=== PATIENT | male | born 1940 | race Caucasian/White ===

== ENCOUNTER 2016-09-01 12:09 | Emergency (ER) | payer MEDICARE, BC ==
--- OUTSIDE RECORDS SUMMARY | 2016-09-01 12:20 | XMS REPORT | Continuity of Care Document ---
:1940 Author Organization [facility] [place] [address] Care Team Providers Name Role Phone Yo Martins Victoriano Primary Care Provider [phone] Source Comments This disclosure is being made pursuant to the Empowered Careers program and maynot contain all information available regarding this patient.[facility] Active Allergies and Adverse Reactions No Known Allergies Current Medications Be aware that medications may not be up to date as of this document. Alwaysverify current medications with the patient. Prescription Sig. Disp. Refills Start Date End Date Status pantoprazole Take 40 mg by Active (PROTONIX) 40 MG mouth daily. tablet albuterol (PROVENTIL Inhale 2 Active HFA;VENTOLIN HFA) puffs into 108 (90 BASE) the lungs MCG/ACT inhaler every 6 (six) hours as needed for Wheezing. diltiazem (CARDIZEM Take 180 mg Active CD) 180 MG 24 hr by mouth capsule daily. nitroGLYCERIN Place 0.4 mg Active (NITROSTAT) 0.4 MG under the SL tablet tongue every 5 (five) minutes as needed for Chest pain. cephALEXin (KEFLEX) Take 500 mg Active 500 MG capsule by mouth 3 (three) times daily. PARoxetine (PAXIL) Take 10 mg by Active 10 MG tablet mouth daily. nortriptyline Take 25 mg by Active (PAMELOR) 25 MG mouth capsule nightly. memantine (NAMENDA) 1/2 tablet at 60 tablet 6 08/19/2016 Active 10 MG tablet at bedtime for 1 week then 1/2 tablet twice daily for 1 week then 1/2 tablet in AM and 1 tablet in PM then 1 tablet twice daily thereafter. clopidogrel (PLAVIX) Take 75 mg by 08/19/2016 Discontinued 75 MG tablet mouth daily. memantine (NAMENDA Follow 49 tablet 0 08/19/2016 08/19/2016 Discontinued TITRATION PACK) package tablet pack directions. 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 Management - titration kit not covered, changed to plain namenda 07/02/2016 Data Import Social History Tobacco Use Types Packs/Day Years Used Date Former Smoker Cigarettes 2 50 Smokeless Tobacco: Former User Quit: 09/18/2005 Comments:quit 8 years ago Alcohol Use Drinks/Week oz/Week Comments No Past heavy use Last Filed Vital Signs Vital Sign Reading Time Taken Blood Pressure 116/80 08/19/2016 10:13 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 Pulse 70 08/19/2016 10:13 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 Temperature 37.2 C (98.9 F) 01/07/2016 4:33 PM CDT Respiratory Rate 18 01/07/2016 4:33 PM CDT Height 1.651 m (5' 5") 08/19/2016 10:13 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 Weight 67.132 kg (148 lb) 08/19/2016 10:13 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 Body Mass Index 24.63 08/19/2016 10:13 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 Oxygen Saturation 96% 01/07/2016 4:33 PM CDT Plan of Care Date Type Specialty Providers Description 10/13/2016 Appointment Neurology Henok Sims MD [address] [place] [address] [address] [place] [address] [phone] (Fax) 12/30/2016 Appointment Radiology Carlos Arreola MD [address] [place] [phone] (Fax) 01/06/2017 Appointment Oncology Carlos Arreola MD [address] [place] [phone] (Fax) Health Maintenance Due Date Last Done Comments Tetanus/Pertussis (1 - Tdap) 1961 Colonoscopy 1992 Well Adult Visit 1992 Zoster Vaccine 60+ 2002 AAA Screening (Medicare Covered) 2007 Pneumococcal Low/Medium Risk 65+ (1 of 2 - PCV13) 2007 Influenza Immunization (#1) 2016 Results from Last 3 Months Not on file
--- OUTSIDE RECORDS SUMMARY | 2016-09-01 12:20 | XMS REPORT | Continuity of Care Document ---
:1940 Author Organization [facility] ([facility]) Address [address] [place] [address] Phone [phone] Care Team Providers Name Role Phone Yo Martins Primary Care Provider [phone] Source Comments This disclosure is being made pursuant to the Care Everywhere program, applicable federal and state laws, and may not contain all informaitonavailable regarding this patient.[facility] ([facility]) Active Allergies and Adverse Reactions No Known Allergies Current Medications Prescription Sig. Disp. Refills Start Date End Date Status nitroglycerin 0.4 place 1 Tab under 1 Bottle 1 08/17/2011 Active mg SL tablet the tongue every 5 minutes as needed. Indications: Angina albuterol (PROAIR Use 1-2 Puffs by 8.5 g 11 09/26/2014 Active HFA) 90 inhalation every mcg/Actuation 6 hours as inhaler needed. Indications: BRONCHOSPASM PREVENTION calcium carbonate Take 600 mg by Active PO mouth daily clopidogrel 75 mg Take 1 tablet (75 60 tablet 11 03/26/2015 Active tablet mg total) by mouth daily meclizine 25 mg Take 1 tablet (25 30 tablet 3 09/10/2015 Active tablet mg total) by mouth 3 times daily as needed. loperamide 2 mg Take 1 tablet (2 20 tablet 2 09/10/2015 Active tablet mg total) by mouth 4 times daily as needed. pantoprazole 40 mg Take 1 tablet (40 90 tablet 3 2016 Active EC tablet mg total) by mouth daily. diltiazem 180 mg Take 1 capsule 90 capsule 3 2016 Active ER capsule (180 mg total) by mouth daily. PARoxetine 20 mg Take 0.5 tablets 30 tablet 11 06/19/2016 Active tablet (10 mg total) by mouth daily. HYDROcodone-acetam Take 1 tablet by 15 tablet 0 07/15/2016 Active inophen 5-325 mg mouth every 6 per tablet hours as needed for Pain. docusate 100 mg Take 1 capsule 30 capsule 0 07/15/2016 Active capsule (100 mg total) by mouth 2 times daily as needed for Constipation (and while taking narcotic pain meds (hydrocodone)). cephalexin 500 mg Take 1 capsule 30 capsule 0 08/14/2016 Active capsule (500 mg total) by mouth 3 times daily. cephalexin 500 mg Take 1 capsule 30 capsule 0 07/28/2016 08/14/19 Discontinued capsule (500 mg total) by 17 mouth 3 times daily. Active Problems Problem Noted Date Sinus headache 05/08/2015 Acute maxillary sinusitis 05/08/2015 Acute frontal sinusitis 05/08/2015 Hearing loss 09/19/2014 Special screening for malignant neoplasms, colon 07/28/2013 History of nonmelanoma skin cancer 07/22/2013 Other vitamin B12 deficiency anemia 07/27/2012 Chest pain, unspecified 06/14/2012 Impaired hearing 06/14/2012 Chest wall pain 06/14/2012 Gastritis 06/14/2012 Bradycardia 06/14/2012 CRF (chronic renal failure) 06/14/2012 Other chest pain 08/07/2011 Overview: History of non-obstructive CAD at cath. 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 HTN (hypertension) 08/07/2011 Mixed hyperlipidemia 08/07/2011 TIA (transient ischemic attack) 08/07/2011 COPD (chronic obstructive pulmonary disease) 08/07/2011 Nodular lymphoma, unspecified site, extranodal and solid organ sites 2005 Most Recent Encounters Date Type Specialty Providers Description 08/25/2016 Office Visit Yo Johnson Dx: Lightheadedness Primary A, DO (Primary Dx) 08/18/2016 [facility] Avery Anderson Dx: Tinnitus, bilateral Encounter Specialty (Primary Dx) 08/14/2016 Office Visit Yo Johnson Dx: Acute bronchitis, Primary A, DO unspecified organism (Primary Dx) 07/28/2016 Office Visit Yo Johnson Dx: Acute maxillary Primary A, DO sinusitis, recurrence not specified (Primary Dx) 07/24/2016 Office Visit Yo Johnson Chief Comp: Patient Primary A, DO Reported Reason For Visit 07/15/2016 [facility], Dx: Rib pain on left Encounter Specialty PA-C side (Primary Dx) Preston Pandey DO 07/07/2016 Office Visit Dante Urbina Dx: Hard of hearing, Primary D, PA-C bilateral (Primary Dx) 06/19/2016 Office Visit Yo Johnson Dx: Malaise and fatigue Primary A, DO (Primary Dx) 06/01/2016 Telephone Yo Johnson Chief Comp: Discuss Primary A, DO Recommendations Immunizations Name Dates Previously Given Next Due Influenza, PF 05/30/2014,06/15/2012 Influenza, quadrivalent PF 2016,06/18/2015,05/30/2014 Influenza, unspecified 05/19/2005 Pneumococcal Polysaccharide, PPSV23 08/09/2015 (Pneumovax 23) Pneumococcal, unspecified 05/19/2005 Zoster, live (Zostavax) 06/22/2012 Social History Tobacco Use Types Packs/Day Years Used Date Former Smoker Cigarettes 2 50 Quit: 07/19/2005 Smokeless Tobacco: Never Used Tobacco Cessation:Counseling Given: Yes Comments: Alcohol Use Drinks/Week oz/Week Comments No Last Filed Vital Signs Vital Sign Reading Time Taken Blood Pressure 180/90 08/25/2016 3:34 PM 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 Pulse 60 08/25/2016 3:34 PM 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 Temperature 36.7 C (98 F) 08/25/2016 3:34 PM 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 Respiratory Rate 22 08/25/2016 3:34 PM 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 Height 1.651 m (5' 5") 05/07/2015 11:38 PM CDT Weight 65.499 kg (144 lb 6.4 oz) 08/25/2016 3:34 PM 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 Body Mass Index 24.03 08/25/2016 3:34 PM 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 Oxygen Saturation 94% 08/18/2016 6:30 PM 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 Plan of Care Date Type Specialty Providers Description 09/11/2016 Appointment Yo Jacinto, Chief Comp: Patient DO Reported Reason For [address] [place] [address] [phone] Health Maintenance Due Date Last Done Comments Hepatitis B Vaccine (1 of 3 1940 - Primary Series) Tdap Vaccine 1953 Td Vaccine 1960 Colonoscopy 05/21/1992 Prostate Cancer Screening 1992 Pneumococcal Vaccine (2 of 2 08/09/2016 08/09/2015 - PCV13) Lipid Disorder Screening 03/09/2021 03/09/2016, Additional history exists 09/10/2015, 06/11/2014 Zoster Vaccine Completed 06/22/2012 Influenza Vaccine: Seasonal Completed 2016, Additional history exists 06/18/2015, 05/30/2014 Results from Last 3 Months [facility] URINE DIPSTICK, NONAUTO POINT OF CARE (08/18/2016 6:47 PM) Component Value Range [facility] Specific [place] 1.015 1.015-1.025 [facility] pH 6.0 5.0-8.5 [facility] Leukocyte Negative [facility] Nitrite Negative [facility] Protein Trace mg/dl [facility] Glucose, Urine Normal [facility] Ketones Negative [facility] Urobilinogen Normal [facility] Bilirubin Negative [facility] Blood Trace hemolyzed [facility] CT HEAD WO CONTRAST ([id number]) (08/18/2016 5:51 PM) Impressions : CEREBRAL CEREBELLAR VOLUME LOSS. CHRONIC SMALL VESSELS DISEASE. OLD LACUNAR INFARCT RIGHT THALAMUS. SUGGESTION OF NORMAL PRESSURE HYDROCEPHALUSIN APPROPRIATE CLINICAL SETTING. Narrative RADIOLOGY CONSULTATION [facility] DEPARTMENT OF RADIOLOGY [place], [place] [address] WITHOUT CONTRAST: Axial images were obtained using automatic exposure control. No acute intracranial hemorrhage, mass effect or mid line shift. Prominent ventricles, cortical sulci and basal cisterns suggesting cerebral cerebellar volume loss. Old lacunar infarct right thalamus. Suggestion of normal pressure hydrocephalus in an appropriate clinical setting. Mucosal thickening left maxillary sinus and ethmoid sinuses. Normal calvarium. [facility] XR CHEST PA& LAT ([id number]) (08/18/2016 5:50 PM) Impressions ; OLD GRANULOMATOUS DISEASE. NO ACUTE PULMONARY PROCESS. Narrative RADIOLOGY CONSULTATION [facility] DEPARTMENT OF RADIOLOGY [place], [place] [address] ER PA AND LATERAL CHEST: Normal cardiac size. Atherosclerotic aorta. Old granulomatous disease, calcified granuloma right lower lobe. [facility] COMPREHENSIVE METABOLIC PANEL (CMP) (08/18/2016 5:14 PM) Component Value Range [facility] Sodium 146(H) 137-145 mmol/L [facility] Potassium 4.3 3.4-5.1 mmol/L [facility] Chloride 102 98-107 mmol/L [facility] CO2 28 20-30 mmol/L [facility] Glucose 82 60-110 mg/dL [facility] BUN 15 9-20 mg/dL [facility] Creatinine 1.23 0.70-1.25 mg/dL [facility] Total Protein 8.0 6.3-8.2 g/dL [facility] Calcium 8.9 8.4-10.5 mg/dL [facility] Albumin 4.5 3.0-5.0 g/dL [facility] ALP 96 36-113 U/L [facility] ALT/SGPT 51(H) 11-47 U/L [facility] AST/SGOT 33 17-59 U/L [facility] Calculated GFR 58(L) >60 mL/min/1.73 m2 [facility] Bilirubin, Total 0.4 0.2-1.3 mg/dL Specimen Blood [facility] CBC WITH DIFFERENTIAL (08/18/2016 5:14 PM) Component Value Range [facility] WBC 7.0 3.6-9.4 th/mm3 [facility] RBC 5.09 4.40-5.60 mil/mm3 [facility] HEMOGLOBIN 15.5 13.8-17.0 g/dL [facility] HEMATOCRIT 44.2 41.0-51.0 % [facility] MEAN CORPUSCULAR VOLUME 86.8 84.0-98.0 fl [facility] MEAN CORPUSCULAR HGB 30.5 26.0-38.0 pg [facility] MEAN CORPUSCULAR HGB CONCENTRATION 35.1 32.0-36.0 g/dL [facility] PLATELET COUNT 375(H) 150-350 th/mm3 [facility] Abs Neutrophils 4.17 2.60-7.00 th/mm3 [facility] Abs Lymphocytes 2.14 0.70-3.40 th/mm3 [facility] Abs Monocytes 0.52 0.10-1.00 th/mm3 [facility] Abs Eosinophils 0.14 0.00-0.45 th/mm3 [facility] Abs Basophils 0.03 0.00-0.12 th/mm3 [facility] % Neutrophils 59.6 34.0-67.9 % [facility] % Lymphocytes 30.6 21.8-53.1 % [facility] % Monocytes 7.4 0.0-15.0 % [facility] % Eosinophils 2.0 0.0-6.0 % [facility] % Basophils 0.4 0.0-2.0 % Specimen Blood [facility] XR RIBS LEFT 2 VIEWS W CHEST ([id number]) (07/15/2016 9:53 AM) Narrative Radiology Consultation [facility] DEPARTMENT OF RADIOLOGY [facility] & [place], [place] [address] IP/OP/ER: __ER___ CHEST & LEFT SIDED RIBS: Normal cardiac size. Atherosclerotic aorta. Old granulomatous disease. Calcified right hilar lymph nodes, calcified granuloma right lower lobe. Degenerative changes thoracic spine. Bony cervical rib. The appearance of anterior end of left 9th rib could be projectional or related to a non displaced fracture. Otherwise no rib fracture seen.
--- NOTE | 2016-09-01 12:23 | ERNOTE ---
Neuro HPI ER Record Presenting Symptoms: weakness Time Seen by Provider: 09/01/16 12:09 Source: patient, family Exam Limitations: dementia - ? Immunizations: IMMUNIZATION HX History of Influenza Vaccine Yes Hx Pneumococcal Vaccination No Allergies/Adverse Reactions: Allergies Allergy/AdvReac Type Severity Reaction Status Date / Time No Known Allergies Allergy Verified 06/02/16 07:42 Home Medications: HOME MEDICATIONS Diltiazem HCl [Diltiazem ER] 180 mg PO DAILY 09/01/16 [Last Taken Unknown] Nortriptyline HCl [Pamelor] 25 mg PO HS 09/01/16 [Last Taken Unknown] PARoxetine HCL [Paxil] 20 mg PO DAILY 09/01/16 [Last Taken Unknown] Pantoprazole Sodium [Protonix] 40 mg PO DAILY 09/01/16 [Last Taken Unknown] - History of Present Illness Narrative: Patient was driving his car home when he noticed left sided weakness around 10: 30. after he got home he called the ambulance, his initial glucose was 52. Per ambulance crew his symptoms have improved since he was picked up. Patient states 'I just don't feel good' but can't specify what is wrong. Per chart he was seen in the ER 06/03 for TIA, the chart mentioned a concern about dementia Date (Duration): 09/01/16 Time (Timing): 10:30 Onset: better Severity: mild - Character of Deficits New weakness: Present: LUE, LLE, facial (lt) Additional Deficits: Absent: vision problems, off balance Baseline Cognition: Present: alert, oriented x 4 Baseline Gait: Present: walks w/o assistance Associated Symptoms: Denies: fever/chills, chest pain, neck/back pain, headache Review of Systems - Review of Systems Constitutional: Absent: recent illness, fever EYE: Absent: blurred vision, double vision ENT: Absent: sore throat Respiratory: Absent: shortness of breath, cough Cardiology: Absent: chest pain Gastrointestinal/Abdominal: Absent: nausea, vomiting, abdominal pain Genitourinary: Present: no symptoms reported Musculoskeletal: Present: no symptoms reported Neurological: Present: See HPI. Absent: headache - Patient's Past Medical History Patient History - Medical: No pertinent hx Patient History - Cardiac/Respiratory: CVA/Stroke, Hypertension, Hyperlipidemia Patient History - Surgical Procedures: Other Patient History - Other: None - Social History Living Situations: home Psych History: No pertinent hx Alcohol Use: none Drug Use: none - Immunizations Hx Pneumococcal Vaccination: No History of Influenza Vaccine: Yes Physical Exam - Physical Exam General Appearance: Present: wd/wn, alert, no apparent distress Eye Exam: Normal inspection: bilateral, PERRL: bilateral Ears, Nose, Throat: Present: normal ENT inspection, hearing decreased, normal pharynx Neck: Present: normal inspection, nontender Respiratory: Present: no respiratory distress, no accessory muscle use, lungs clear, decreased breath sounds Cardiovascular/Chest: Present: regular rate, rhythm, no murmur Gastrointestinal/Abdominal: Present: normal bowel sounds, nontender, nondistended, soft Neurological Exam: Present: alert, normal mood/affect, no motor/sensory deficits , mental health therapist II-XII nml as tested, normal cerebellar test, disoriented to time - knows that it is Wednesday, but does not know month or year Skin Exam: Present: normal color, warm/dry Kyle Coma Scale - Assess Eye Opening: Spontaneous Motor: Obeys Commands Verbal: Confused - Total Coma Scale Total: 14 Initial Stroke Assessment - NIH Stroke Scale Level of Consciousness: Alert LOC Questions (Year and Age): Answers one correctly LOC Commands (open/close eyes/fist): Performs both correctly Lateral Gaze Paresis: None Visual Field Loss: No visual loss Facial Palsy: Normal movement Right Arm Motor (10 sec hold): No drift Left Arm Motor (10 sec hold): No drift Right Leg Motor (5 sec hold): No drift Left Leg Motor (5 sec hold): Drift Limb Ataxia (finger/nose heel/delcid): Absent Sensory Loss (pinprick arms/legs/face): No sensory loss Language Aphasia (description/naming/reading): No aphasia; normal Dysarthria (speech clarity): Normal articulation Neglect Inattention (visual/tactile/auditory/spatial/person): No neglect Initial Stroke Scale Score:: 2 - Stroke Risk Assessment Stroke Risk Assessment Level: 1-4 Mild Impairment ED Progress - Results and Orders Patient's Lab Results:: I have reviewed the patient's lab results. - Vital Signs Patient's Vital Signs:: I have reviewed the patient's vital signs. - EKG EKG: NSR - sinusbradycardia HR 53, nonspecific ST T wave changes, other - no prior available EKG read: Interp. by me - CT/Ultrasound CT/Ultrasound Narrative: discussed head CT with radiologist, chronic atrophy, no acute findings - Progress/Reassessment Progress Note-Subjective: 09/01/16 12:[address] with neurologist 09/01/16 13:05 discussed results with patient and , patient does not take aspirin on a regular basis, he insists on taking his own medication and frequently forgets, definitely has a concern about dementia, discussed importance of taking aspirin daily neuro exam unchanged Departure Clinical Impression: TIA (transient ischemic attack) Qualifiers: Transient cerebral ischemia type: unspecified Qualified Code(s): G45.9 - Transient cerebral ischemic attack, unspecified - Departure Disposition: Home self-care Condition: Fair Instructions: Transient Ischemic Attack, [id number] Additional Instructions: make sure to take a daily aspirin! call your doctor for follow up Referrals: Yo Martins, DO [Pharmacy] -
[2016-09-01 12:28] LABS: Hematocrit 41.4 % (42.0-52.0); Hemoglobin 14.4 gm/dL (13.5-18.0); Mean Cell Volume 85.9 fl (78-100); Mean Corpuscular Hemoglobin 29.9 pg (27-31); Mean Corpuscular Hgb Conc 34.8 g/dl (32-36); Mean Platelet Volume 9.1 fl (6.0-9.5); Neutrophil # 3.4 K/mm3 (1.3-6.0); Neutrophil % 55.1 % (42-75.0); Platelet Count 315 K/mm3 (150-450); Red Blood Count 4.82 M/mm3 (4.7-6.0); Red Cell Distribution Width 13.2 % (11.5-14.0); White Blood Count 6.1 K/mm3 (4.0-10.5)
[2016-09-01 12:41] LABS: INR 0.98 INR (0.90-1.10); Prothrombin Time (Patient) 10.2 Seconds (9.4-11.4)
[2016-09-01 12:42] LABS: Albumin * 3.8 gm/dl (3.4-5.0); Anion Gap 16.4 mmol/L (6.8-13.8); BUN/Creatinine Ratio 15.9 (9.0-21.6); Bilirubin, Total 0.5 mg/dL (0.0-1.1); Ca. Corrected For Albumin 8.6 mg/dL (8.4-10.2); Calcium * 8.8 mg/dL (7.9-10.9); Carbon Dioxide 21.7 mmol/L (24-32.6); Partial Thrombolplastin Time 27.3 Seconds (24-32); Potassium 4.1 mmol/L (3.4-4.6); Total Protein 6.9 gm/dL (6.2-8.2)
[2016-09-01] MEDS ORDERED: ASPIRIN 81 MG TAB.CHEW PO ONE (13:05)
[2016-09-01] MEDS ORDERED: ASPIRIN 81 MG TAB.CHEW ONE (13:06)
[2016-09-01 13:32] VITALS: BP 169/74
== END 2016-09-01 13:15 | disposition home or self-care (01) ==
LOC: ER 12:09
DX: G45.9 Transient cerebral ischemic attack, unspecified (principal); I10 Essential (primary) hypertension